=== PATIENT | male | born 1945 ===

== ENCOUNTER 2018-08-19 15:54 | Inpatient (IN) ==
[2018-08-19] MEDS ORDERED: GLUCAGON 1 MG VIAL IM PRN (18:59)
[2018-08-19] MEDS ORDERED: ONDANSETRON 4 MG/2 ML VIAL IV PRN (18:59)
[2018-08-19] MEDS ORDERED: MORPHINE 4 MG/1 ML VIAL IV PRN (18:59)
[2018-08-19] MEDS ORDERED: INSULIN REGULAR 100 UNIT/ML IV ONE (19:02)
[2018-08-19 19:42] LABS: Basophils % 0.3 % (0.0-0.8); Eosinophils # 0.1 10*3/uL (0.0-0.87); Eosinophils % 0.4 % (0.00-10.9); Hematocrit 33.3 VOL% (42.0-52.0); Hemoglobin 11.5 GM/DL (14.0-18.0); Immature Granulocytes % 2.3 %; Immature Granulocytes Absolute 0.27 #; Lymphocytes # 0.7 10*3/uL (1.4-4.0); Lymphocytes % 5.5 % (21.2-54.2); Mean Corpuscular HGB Conc 34.5 GM/DL (32-36); Mean Corpuscular Hemoglobin 31 PG (27-34); Mean Corpuscular Volume 90.7 FL (87-102); Mean Platelet Volume 10.2 FL (9.6-12.0); Monocytes # 1.5 10*3/uL (0.11-0.8); Monocytes % 12.5 % (1.7-12.7); Neutrophils # 9.3 10*3/uL (1.4-7.4); Platelet Count 134 T/CUMM (130-400); Red Blood Count 3.67 MC/CUMM (3.8-5.5); Red Cell Distribution Width 12.2 % (9.3-17.3); White Blood Count 11.7 T/CUMM (4-12)
[2018-08-19] MEDS: SODIUM CHLORIDE 0.9% 1,000 ML IV SCH (20:00)
[2018-08-19 20:06] LABS: Band Neutrophils 4 % (0-10); Eosinophils 1 % (0-10); Lymphocytes 4 % (20-55); Platelet Estimate Normal; Segmented Neutrophils 84 % (50-85)
[2018-08-19 20:07] LABS: Anisocytosis Slight; Polychromasia Slight
[2018-08-19 20:07] LABS: Alanine Aminotransferase 11 U/L (16-61); Albumin 1.7 G/DL (3.4-5.0); Alkaline Phosphatase 74 U/L (45-117); Aspartate Amino Transferase 16 U/L (0-37); Blood Urea Nitrogen 49 MG/DL (7-18); Calcium 7.9 MG/DL (8.5-10.1); Cholesterol 104 MG/DL (50-200); Glucose 364 MG/DL (74-106); HDL Cholesterol < 10 MG/DL (40-60); Osmolality,Calculated 274.8 MOS/KG (273-304); Potassium 3.1 MMOL/L (3.5-5.1); Sodium 123 MMOL/L (136-145); Total Protein 6.6 G/DL (6.4-8.3); Triglycerides 196 MG/DL (2-150); VLDL CHOLESTEROL 39.2 MG/DL
[2018-08-19 20:08] LABS: Hypochromasia Slight; Total Cells Counted 100
[2018-08-19] MEDS ORDERED: POTASSIUM CHLORIDE 20 MEQ TABLET PO ONE (20:09)
[2018-08-19] MEDS ORDERED: INSULIN GLARGINE 100 UNIT/ML SUBCUT SCH (21:00)
[2018-08-19] MEDS: ENOXAPARIN 40 MG/0.4 ML SYRINGE SUBCUT SCH (22:18)
[2018-08-19 22:31] LABS: Apearance,Urine CLOUDY (Clear); Bilirubin,Urine Negative (Negative); Blood, Urine Large mg/dL (Negative); Glucose,Urine (UA) >=500 mg/dL (Negative); Ketones,Urine 5 mg/dL (Negative); Nitrite,Urine Negative (Negative); Protein,Urine 100 MG/DL; RBC,Urine 4 /HPF (0-4); Squamous Epithelial Cell,Urine Occasional /HPF (0-10); Urine Color Amber (Yellow); Urine Specific Gravity 1.016 (1.001-1.035); WBC,Urine 490 /HPF (0-6)
[2018-08-20] MEDS: cefTRIAXone 1,000 MG in SYRINGE 1 EACH IV SCH (05:10)
[2018-08-20] MEDS: ACETAMINOPHEN 325 MG TABLET PO PRN (05:10)
[2018-08-20] MEDS: SODIUM CHLORIDE 0.9% 1,000 ML IV SCH ×3 (05:11→21:24)
[2018-08-20 05:32] LABS: Calcium 7.3 MG/DL (8.5-10.1); Osmolality,Calculated 273.5 MOS/KG (273-304); Potassium 3.3 MMOL/L (3.5-5.1)
[2018-08-20] MEDS: PANTOPRAZOLE 40 MG TABLET PO SCH (08:56)
[2018-08-20] MEDS: MULTIVITAMIN (BEROCCA) TABLET PO SCH (08:56)
[2018-08-20] MEDS: ASPIRIN 325 MG TABLET PO SCH (08:56)
[2018-08-20] MEDS: THIAMINE 200 MG/2 ML VIAL IV SCH (08:56)
[2018-08-20] MEDS ORDERED: POTASSIUM CHLORIDE 20 MEQ TABLET PO ONE ×2 (12:18→13:01)
[2018-08-20] MEDS: INSULIN LISPRO 100 UNIT/ML SUBCUT SCH ×3 (12:55→21:24)
[2018-08-20 17:23] LABS: Calcium 7.4 MG/DL (8.5-10.1); Osmolality,Calculated 277.9 MOS/KG (273-304); Potassium 3.6 MMOL/L (3.5-5.1)
[2018-08-20] MEDS: ENOXAPARIN 40 MG/0.4 ML SYRINGE SUBCUT SCH (21:24)
[2018-08-20] MEDS: INSULIN GLARGINE 100 UNIT/ML SUBCUT SCH (21:24)
[2018-08-21] MEDS: SODIUM CHLORIDE 0.9% 1,000 ML IV SCH ×4 (00:05→15:26)
[2018-08-21 05:24] LABS: Calcium 7.2 MG/DL (8.5-10.1); Osmolality,Calculated 273.4 MOS/KG (273-304); Potassium 4.2 MMOL/L (3.5-5.1)
[2018-08-21] MEDS: cefTRIAXone 1,000 MG in SYRINGE 1 EACH IV SCH (06:01)
[2018-08-21] MEDS: INSULIN LISPRO 100 UNIT/ML SUBCUT SCH ×4 (08:23→22:32)
[2018-08-21] MEDS ORDERED: SODIUM CHLORIDE 0.9% 100 ML IV ONE (08:52)
[2018-08-21] MEDS: ASPIRIN 325 MG TABLET PO SCH (08:59)
[2018-08-21] MEDS: PANTOPRAZOLE 40 MG TABLET PO SCH (08:59)
[2018-08-21] MEDS: MULTIVITAMIN (BEROCCA) TABLET PO SCH (08:59)
[2018-08-21] MEDS: THIAMINE 200 MG/2 ML VIAL IV SCH (09:00)
[2018-08-21] MEDS: chlordiazePOXIDE 25 MG CAPSULE PO SCH ×2 (18:44→22:32)
[2018-08-21] MEDS: ENOXAPARIN 40 MG/0.4 ML SYRINGE SUBCUT SCH (22:33)
[2018-08-21] MEDS: INSULIN GLARGINE 100 UNIT/ML SUBCUT SCH (22:33)
[2018-08-22 04:50] LABS: Basophils % 0.2 % (0.0-0.8); Eosinophils # 0.1 10*3/uL (0.0-0.87); Eosinophils % 0.6 % (0.00-10.9); Hematocrit 30.1 VOL% (42.0-52.0); Hemoglobin 10.2 GM/DL (14.0-18.0); Immature Granulocytes Absolute 0.49 #; Lymphocytes # 1.4 10*3/uL (1.4-4.0); Lymphocytes % 5.7 % (21.2-54.2); Mean Corpuscular HGB Conc 33.9 GM/DL (32-36); Mean Corpuscular Hemoglobin 32 PG (27-34); Mean Corpuscular Volume 93.5 FL (87-102); Mean Platelet Volume 9.7 FL (9.6-12.0); Monocytes # 2.3 10*3/uL (0.11-0.8); Monocytes % 9.4 % (1.7-12.7); Neutrophils # 19.9 10*3/uL (1.4-7.4); Neutrophils % 82.1 % (38.7-73.9); Platelet Count 232 T/CUMM (130-400); Red Blood Count 3.22 MC/CUMM (3.8-5.5); White Blood Count 24.3 T/CUMM (4-12)
[2018-08-22 05:22] LABS: Eosinophils 1 % (0-10); Lymphocytes 7 % (20-55); Platelet Estimate Adequate; Segmented Neutrophils 88 % (50-85); Total Cells Counted 100
[2018-08-22 05:26] LABS: Osmolality,Calculated 261.9 MOS/KG (273-304); Potassium 3.9 MMOL/L (3.5-5.1)
[2018-08-22] MEDS: cefTRIAXone 1,000 MG in SYRINGE 1 EACH IV SCH (05:58)
[2018-08-22] MEDS: SODIUM CHLORIDE 0.9% 1,000 ML IV SCH ×3 (05:59→18:30)
[2018-08-22] MEDS: INSULIN LISPRO 100 UNIT/ML SUBCUT SCH ×4 (08:06→21:16)
[2018-08-22] MEDS: chlordiazePOXIDE 25 MG CAPSULE PO SCH ×4 (09:08→21:29)
[2018-08-22] MEDS: PANTOPRAZOLE 40 MG TABLET PO SCH (09:09)
[2018-08-22] MEDS: MULTIVITAMIN (BEROCCA) TABLET PO SCH (09:09)
[2018-08-22] MEDS: ASPIRIN 325 MG TABLET PO SCH (09:09)
[2018-08-22] MEDS: THIAMINE 200 MG/2 ML VIAL IV SCH (09:10)
[2018-08-22 10:09] LABS: Basophils % 0.2 % (0.0-0.8); Eosinophils # 0.1 10*3/uL (0.0-0.87); Eosinophils % 0.7 % (0.00-10.9); Hemoglobin 9.5 GM/DL (14.0-18.0); Immature Granulocytes % 1.5 %; Immature Granulocytes Absolute 0.29 #; Lymphocytes # 0.7 10*3/uL (1.4-4.0); Lymphocytes % 3.7 % (21.2-54.2); Mean Corpuscular HGB Conc 33.9 GM/DL (32-36); Mean Corpuscular Hemoglobin 32 PG (27-34); Mean Corpuscular Volume 94.3 FL (87-102); Mean Platelet Volume 9.3 FL (9.6-12.0); Monocytes # 1.6 10*3/uL (0.11-0.8); Monocytes % 8.2 % (1.7-12.7); Neutrophils # 16.6 10*3/uL (1.4-7.4); Neutrophils % 85.7 % (38.7-73.9); Platelet Count 219 T/CUMM (130-400); Red Blood Count 2.97 MC/CUMM (3.8-5.5); Red Cell Distribution Width 13.3 % (9.3-17.3); White Blood Count 19.4 T/CUMM (4-12)
[2018-08-22 10:36] LABS: Lymphocytes 3 % (20-55); Segmented Neutrophils 93 % (50-85); Total Cells Counted 100
[2018-08-22 10:37] LABS: Hypochromasia 1+; Microcytosis 1+
[2018-08-22 10:38] LABS: Platelet Estimate Normal
[2018-08-22] MEDS: MEROPENEM 1,000 MG in SODIUM CHLORIDE 0.9% 100 ML IV SCH (13:18)
[2018-08-22] MEDS: VANCOMYCIN INJ 1,000 MG in SODIUM CHLORIDE 0.9% 250 ML IV SCH (14:42)
[2018-08-22] MEDS: INSULIN GLARGINE 100 UNIT/ML SUBCUT SCH (21:16)
[2018-08-22] MEDS: ACETAMINOPHEN 325 MG TABLET PO PRN (21:31)
[2018-08-22] MEDS: ENOXAPARIN 40 MG/0.4 ML SYRINGE SUBCUT SCH (21:31)
[2018-08-23] MEDS: MEROPENEM 1,000 MG in SODIUM CHLORIDE 0.9% 100 ML IV SCH ×2 (00:06→15:18)
[2018-08-23] MEDS: SODIUM CHLORIDE 0.9% 1,000 ML IV SCH ×5 (05:16→23:02)
[2018-08-23 07:23] LABS: Basophils % 0.2 % (0.0-0.8); Eosinophils # 0.3 10*3/uL (0.0-0.87); Eosinophils % 1.6 % (0.00-10.9); Hemoglobin 9.1 GM/DL (14.0-18.0); Immature Granulocytes % 1.5 %; Immature Granulocytes Absolute 0.25 #; Lymphocytes # 0.9 10*3/uL (1.4-4.0); Lymphocytes % 5.6 % (21.2-54.2); Mean Corpuscular HGB Conc 32.5 GM/DL (32-36); Mean Corpuscular Hemoglobin 32 PG (27-34); Mean Corpuscular Volume 96.9 FL (87-102); Mean Platelet Volume 9.1 FL (9.6-12.0); Monocytes # 1.7 10*3/uL (0.11-0.8); Monocytes % 10.5 % (1.7-12.7); Neutrophils # 13.3 10*3/uL (1.4-7.4); Neutrophils % 80.6 % (38.7-73.9); Platelet Count 226 T/CUMM (130-400); Red Blood Count 2.89 MC/CUMM (3.8-5.5); Red Cell Distribution Width 13.5 % (9.3-17.3); White Blood Count 16.5 T/CUMM (4-12)
[2018-08-23 07:45] LABS: Albumin 1.3 G/DL (3.4-5.0); Bilirubin,Total 0.8 MG/DL (0.2-1.0); Potassium 3.8 MMOL/L (3.5-5.1); Total Protein 5.1 G/DL (6.4-8.3)
[2018-08-23] MEDS: VANCOMYCIN INJ 1,000 MG in SODIUM CHLORIDE 0.9% 250 ML IV SCH (08:12)
[2018-08-23] MEDS ORDERED: cefTRIAXone 1,000 MG in SYRINGE 1 EACH IV ONE (08:17)
[2018-08-23] MEDS: MULTIVITAMIN (BEROCCA) TABLET PO SCH (08:53)
[2018-08-23] MEDS: ASPIRIN 325 MG TABLET PO SCH (08:53)
[2018-08-23] MEDS: chlordiazePOXIDE 25 MG CAPSULE PO SCH ×4 (08:53→21:37)
[2018-08-23] MEDS: PANTOPRAZOLE 40 MG TABLET PO SCH (08:53)
[2018-08-23 08:54] LABS: INR 1.2
[2018-08-23] MEDS: THIAMINE 200 MG/2 ML VIAL IV SCH (08:54)
[2018-08-23] MEDS ORDERED: PHENYLEPHRINE DRIP 20 MG/250 ML PREMIX IV ONE (09:26)
[2018-08-23] MEDS ORDERED: HEPARIN/NACL 0.9% 2 UNITS/ML 500 ML IV ONE (09:26)
[2018-08-23] MEDS ORDERED: CALCIUM CHLORIDE 1,000 MG/10 ML VIAL IV ONE (09:26)
[2018-08-23] MEDS ORDERED: SODIUM BICARBONATE 50 MEQ/50 ML SYRINGE IV ONE ×2 (09:26→11:42)
[2018-08-23] MEDS ORDERED: ROPIVACAINE 0.5% 30 ML VIAL ONE ×3 (09:28→12:56)
[2018-08-23 09:30] LABS: Albumin 1.2 G/DL (3.4-5.0); Bilirubin,Direct 0.56 MG/DL (0.0-0.20); Bilirubin,Indirect 0.1 MG/DL (0.0-1.0); Bilirubin,Total 0.7 MG/DL (0.2-1.0); Total Protein 5.1 G/DL (6.4-8.3)
[2018-08-23] MEDS ORDERED: MICROFIBRILLAR COLLAGEN POWDER 1 GM CAN TOP ONE (09:35)
[2018-08-23] MEDS ORDERED: SODIUM CHLORIDE 0.9% 1,000 ML IV PRN (09:53)
[2018-08-23] MEDS: INSULIN LISPRO 100 UNIT/ML SUBCUT SCH ×4 (10:08→21:36)
[2018-08-23 11:21] LABS: ABG Base Excess -10.5 MMOL/L (-2.5-2.5); ABG HCO3 16.1 MMOL/L (20-26); ABG Oxygen Saturation 99.9 % (95-100); ABG PCO2 28.4 MM HG (35-48); ABG PH 7.318 (7.35-7.45); ABG TCO2 13.5 MMOL/L (23-27); Glucose Heart Surgery 94 MG/DL (74-106); Hematocrit Heart Surgery 28.8 PERCENT (42-52); Hemoglobin Heart Surgery 9.3 G/DL (14.0-18.0); Ionized Calcium Arterial 1.11 MMOL/L (1.21-1.46); PCO2 Patient Temp Arterial 25.8 MMHG; PH Patient Temp Arterial 7.346; Patient Temperature 35 CELCIUS; Potassium Heart/CVR 3.8 MMOL/L (3.5-5.1); Sodium Heart/CVR 130 MMOL/L (135-145)
[2018-08-23] MEDS ORDERED: ALBUMIN 5% 12.5 GM/250 ML VIAL IV ONE (11:42)
[2018-08-23] MEDS ORDERED: DEXTROSE 50% 25 GM/50 ML VIAL IV ONE (11:42)
[2018-08-23 12:17] LABS: ABG Base Excess -4.7 MMOL/L (-2.5-2.5); ABG HCO3 20.5 MMOL/L (20-26); ABG Oxygen Saturation 99.9 % (95-100); ABG PH 7.351 (7.35-7.45); ABG TCO2 19.2 MMOL/L (23-27); Glucose Heart Surgery 94 MG/DL (74-106); Hemoglobin Heart Surgery 7.7 G/DL (14.0-18.0); Potassium Heart/CVR 3.3 MMOL/L (3.5-5.1)
[2018-08-23] MEDS ORDERED: ETOMIDATE 40 MG/20 ML VIAL IV ONE (12:56)
[2018-08-23] MEDS ORDERED: MIDAZOLAM 10 MG/2 ML VIAL ONE (12:56)
[2018-08-23] MEDS ORDERED: ROCURONIUM 100 MG/10 ML VIAL IV ONE (12:57)
[2018-08-23 13:50] LABS: Amorphous Crystals,Urine Few /HPF (Few); Apearance,Urine CLOUDY (Clear); Bilirubin,Urine Negative (Negative); Blood, Urine Moderate mg/dL (Negative); Glucose,Urine (UA) Negative (Negative); Ketones,Urine Negative (Negative); Nitrite,Urine Negative (Negative); Protein,Urine Negative; Urine Color Yellow (Yellow); WBC,Urine 4 /HPF (0-6)
[2018-08-23 14:04] LABS: Basophils % 0.2 % (0.0-0.8); Eosinophils # 0.1 10*3/uL (0.0-0.87); Eosinophils % 1.2 % (0.00-10.9); Hemoglobin 10.3 GM/DL (14.0-18.0); Immature Granulocytes % 1.2 %; Immature Granulocytes Absolute 0.13 #; Lymphocytes # 0.5 10*3/uL (1.4-4.0); Lymphocytes % 4.4 % (21.2-54.2); Mean Corpuscular HGB Conc 33.2 GM/DL (32-36); Mean Corpuscular Hemoglobin 31 PG (27-34); Mean Corpuscular Volume 93.9 FL (87-102); Mean Platelet Volume 10.2 FL (9.6-12.0); Monocytes # 0.3 10*3/uL (0.11-0.8); Monocytes % 2.3 % (1.7-12.7); Neutrophils # 10.1 10*3/uL (1.4-7.4); Neutrophils % 90.7 % (38.7-73.9); Platelet Count 178 T/CUMM (130-400); Red Cell Distribution Width 13.5 % (9.3-17.3); White Blood Count 11.1 T/CUMM (4-12)
[2018-08-23 14:06] LABS: ABG Base Excess -6.9 MMOL/L (-2.5-2.5); ABG HCO3 18.8 MMOL/L (20-26); ABG Oxygen Saturation 99.5 % (95-100); ABG PCO2 36.5 MM HG (35-48); ABG PH 7.316 (7.35-7.45)
[2018-08-23 14:29] LABS: Band Neutrophils 2 % (0-10); Burr Cells Few; Eosinophils 2 % (0-10); Hypochromasia Slight; Lymphocytes 2 % (20-55); Platelet Estimate Adequate; Segmented Neutrophils 92 % (50-85); Total Cells Counted 100
[2018-08-23 14:32] LABS: Calcium 7.1 MG/DL (8.5-10.1); Osmolality,Calculated 277.7 MOS/KG (273-304); Potassium 4.3 MMOL/L (3.5-5.1)
[2018-08-23] MEDS: PROPOFOL 1,000 MG/100 ML BOTTLE IV SCH (19:08)
[2018-08-23] MEDS: HYDROmorphone 2 MG/1 ML VIAL IV PRN ×2 (19:30→21:30)
[2018-08-23] MEDS: ENOXAPARIN 40 MG/0.4 ML SYRINGE SUBCUT SCH (21:37)
[2018-08-24] MEDS: INSULIN LISPRO 100 UNIT/ML SUBCUT SCH ×6 (00:12→22:33)
[2018-08-24] MEDS: MEROPENEM 1,000 MG in SODIUM CHLORIDE 0.9% 100 ML IV SCH ×2 (00:23→12:35)
[2018-08-24] MEDS ORDERED: MAGNESIUM SULF RIDER 4 GM in PREMIX 1 EACH IV PRN (00:58)
[2018-08-24] MEDS ORDERED: MAGNESIUM SULF RIDER 2 GM in PREMIX 1 EACH IV PRN (00:58)
[2018-08-24] MEDS: VANCOMYCIN INJ 1,000 MG in SODIUM CHLORIDE 0.9% 250 ML IV SCH ×2 (03:45→21:22)
[2018-08-24] MEDS: HYDROmorphone 2 MG/1 ML VIAL IV PRN ×4 (03:46→21:00)
[2018-08-24] MEDS: SODIUM CHLORIDE 0.9% 1,000 ML IV SCH ×3 (03:46→16:03)
[2018-08-24 04:32] LABS: ABG Base Excess -5.5 MMOL/L (-2.5-2.5); ABG HCO3 19.9 MMOL/L (20-26); ABG Oxygen Saturation 99.7 % (95-100); ABG PH 7.416 (7.35-7.45); ABG TCO2 16.3 MMOL/L (23-27)
[2018-08-24 04:41] LABS: Basophils % 0.3 % (0.0-0.8); Eosinophils # 0.2 10*3/uL (0.0-0.87); Eosinophils % 1.8 % (0.00-10.9); Hemoglobin 9.7 GM/DL (14.0-18.0); Immature Granulocytes % 1.1 %; Immature Granulocytes Absolute 0.13 #; Lymphocytes # 0.7 10*3/uL (1.4-4.0); Lymphocytes % 5.7 % (21.2-54.2); Mean Corpuscular HGB Conc 33.4 GM/DL (32-36); Mean Corpuscular Hemoglobin 31 PG (27-34); Mean Corpuscular Volume 93.5 FL (87-102); Mean Platelet Volume 9.3 FL (9.6-12.0); Monocytes # 1.5 10*3/uL (0.11-0.8); Monocytes % 12.3 % (1.7-12.7); Neutrophils # 9.3 10*3/uL (1.4-7.4); Neutrophils % 78.8 % (38.7-73.9); Platelet Count 224 T/CUMM (130-400); Red Cell Distribution Width 14.6 % (9.3-17.3); White Blood Count 11.8 T/CUMM (4-12)
[2018-08-24 05:14] LABS: Alanine Aminotransferase < 9 U/L (16-61); Albumin 1.4 G/DL (3.4-5.0); Alkaline Phosphatase 87 U/L (45-117); Aspartate Amino Transferase 22 U/L (0-37); Blood Urea Nitrogen 18 MG/DL (7-18); Calcium 6.9 MG/DL (8.5-10.1); Glucose 68 MG/DL (74-106); Osmolality,Calculated 280.3 MOS/KG (273-304); Potassium 3.8 MMOL/L (3.5-5.1); Sodium 141 MMOL/L (136-145); Total Protein 4.8 G/DL (6.4-8.3)
[2018-08-24] MEDS: LORazepam 2 MG/1 ML VIAL IV PRN ×2 (06:09→21:22)
[2018-08-24] MEDS: DEXTROSE 50% 25 GM/50 ML SYRINGE IV PRN (06:10)
[2018-08-24] MEDS: THIAMINE 200 MG/2 ML VIAL IV SCH (08:13)
[2018-08-24] MEDS: PANTOPRAZOLE 40 MG TABLET PO SCH (08:13)
[2018-08-24] MEDS: ASPIRIN 325 MG TABLET PO SCH (08:13)
[2018-08-24] MEDS: MULTIVITAMIN (BEROCCA) TABLET PO SCH (08:13)
[2018-08-24] MEDS: chlordiazePOXIDE 25 MG CAPSULE PO SCH ×4 (08:17→21:22)
[2018-08-24] MEDS ORDERED: MIDAZOLAM 10 MG/2 ML VIAL ONE (11:38)
[2018-08-24] MEDS: PROPOFOL 1,000 MG/100 ML BOTTLE IV SCH (13:04)
[2018-08-24] MEDS: ENOXAPARIN 40 MG/0.4 ML SYRINGE SUBCUT SCH (21:22)
[2018-08-25] MEDS: INSULIN LISPRO 100 UNIT/ML SUBCUT SCH ×6 (00:37→20:45)
[2018-08-25] MEDS: MEROPENEM 1,000 MG in SODIUM CHLORIDE 0.9% 100 ML IV SCH ×2 (00:41→13:14)
[2018-08-25] MEDS: SODIUM CHLORIDE 0.9% 1,000 ML IV SCH ×3 (01:14→17:34)
[2018-08-25] MEDS: HYDROmorphone 2 MG/1 ML VIAL IV PRN ×5 (02:10→23:53)
[2018-08-25 03:27] LABS: ABG Base Excess -6.9 MMOL/L (-2.5-2.5); ABG HCO3 18.8 MMOL/L (20-26); ABG Oxygen Saturation 98.2 % (95-100); ABG PCO2 35.3 MM HG (35-48); ABG PH 7.326 (7.35-7.45); ABG TCO2 16.9 MMOL/L (23-27)
[2018-08-25 03:33] LABS: Basophils % 0.3 % (0.0-0.8); Eosinophils # 0.5 10*3/uL (0.0-0.87); Eosinophils % 3.6 % (0.00-10.9); Hematocrit 30.5 VOL% (42.0-52.0); Hemoglobin 9.9 GM/DL (14.0-18.0); Immature Granulocytes % 1.4 %; Immature Granulocytes Absolute 0.17 #; Lymphocytes # 0.7 10*3/uL (1.4-4.0); Lymphocytes % 5.3 % (21.2-54.2); Mean Corpuscular HGB Conc 32.5 GM/DL (32-36); Mean Corpuscular Hemoglobin 31 PG (27-34); Mean Corpuscular Volume 95.3 FL (87-102); Monocytes # 1.7 10*3/uL (0.11-0.8); Monocytes % 13.5 % (1.7-12.7); Neutrophils # 9.6 10*3/uL (1.4-7.4); Neutrophils % 75.9 % (38.7-73.9); Platelet Count 241 T/CUMM (130-400); Red Cell Distribution Width 14.8 % (9.3-17.3); White Blood Count 12.6 T/CUMM (4-12)
[2018-08-25 03:56] LABS: Calcium 6.9 MG/DL (8.5-10.1); Osmolality,Calculated 282.1 MOS/KG (273-304); Potassium 4.2 MMOL/L (3.5-5.1)
[2018-08-25] MEDS: chlordiazePOXIDE 25 MG CAPSULE PO SCH ×4 (08:19→21:15)
[2018-08-25] MEDS: MULTIVITAMIN (BEROCCA) TABLET PO SCH (08:55)
[2018-08-25] MEDS: ASPIRIN 325 MG TABLET PO SCH (08:55)
[2018-08-25] MEDS: THIAMINE 200 MG/2 ML VIAL IV SCH (08:55)
[2018-08-25] MEDS: LANSOPRAZOLE ODT 30 MG TABLET PER TUBE SCH (08:55)
[2018-08-25] MEDS: PROPOFOL 1,000 MG/100 ML BOTTLE IV SCH (13:15)
[2018-08-25] MEDS: ALBUTEROL/IPRATROPIUM 3 ML NEB RESP TX SCH ×3 (16:00→23:11)
[2018-08-25] MEDS: ENOXAPARIN 40 MG/0.4 ML SYRINGE SUBCUT SCH (21:15)
[2018-08-26] MEDS: INSULIN LISPRO 100 UNIT/ML SUBCUT SCH ×6 (01:23→22:12)
[2018-08-26] MEDS: MEROPENEM 1,000 MG in SODIUM CHLORIDE 0.9% 100 ML IV SCH ×2 (03:32→14:05)
[2018-08-26] MEDS: SODIUM CHLORIDE 0.9% 1,000 ML IV SCH ×5 (03:32→22:23)
[2018-08-26] MEDS: ALBUTEROL/IPRATROPIUM 3 ML NEB RESP TX SCH ×5 (04:02→21:22)
[2018-08-26] MEDS: chlordiazePOXIDE 25 MG CAPSULE PO SCH ×4 (08:02→22:12)
[2018-08-26] MEDS: MULTIVITAMIN (BEROCCA) TABLET PO SCH (08:33)
[2018-08-26] MEDS: ASPIRIN 325 MG TABLET PO SCH (08:33)
[2018-08-26] MEDS: LANSOPRAZOLE ODT 30 MG TABLET PER TUBE SCH (08:33)
[2018-08-26] MEDS: ENOXAPARIN 40 MG/0.4 ML SYRINGE SUBCUT SCH (22:12)
[2018-08-27] MEDS: ALBUTEROL/IPRATROPIUM 3 ML NEB RESP TX SCH ×6 (00:04→19:06)
[2018-08-27] MEDS: MEROPENEM 1,000 MG in SODIUM CHLORIDE 0.9% 100 ML IV SCH ×2 (01:56→13:25)
[2018-08-27] MEDS: SODIUM CHLORIDE 0.9% 1,000 ML IV SCH ×2 (07:43→10:48)
[2018-08-27] MEDS: MULTIVITAMIN (BEROCCA) TABLET PO SCH (08:16)
[2018-08-27] MEDS: ASPIRIN 325 MG TABLET PO SCH (08:16)
[2018-08-27] MEDS: chlordiazePOXIDE 25 MG CAPSULE PO SCH (08:16)
[2018-08-27] MEDS: INSULIN LISPRO 100 UNIT/ML SUBCUT SCH ×4 (08:16→21:56)
[2018-08-27] MEDS: LANSOPRAZOLE ODT 30 MG TABLET PER TUBE SCH (08:16)
[2018-08-27] MEDS: ENOXAPARIN 40 MG/0.4 ML SYRINGE SUBCUT SCH (21:55)
[2018-08-27] MEDS: chlordiazePOXIDE 10 MG CAPSULE PO SCH (21:55)
[2018-08-28] MEDS: ALBUTEROL/IPRATROPIUM 3 ML NEB RESP TX SCH ×7 (00:04→23:16)
[2018-08-28] MEDS: MEROPENEM 1,000 MG in SODIUM CHLORIDE 0.9% 100 ML IV SCH ×2 (00:23→13:56)
[2018-08-28] MEDS: HYDROmorphone 2 MG/1 ML VIAL IV PRN (04:09)
[2018-08-28 05:37] LABS: Basophils % 0.6 % (0.0-0.8); Eosinophils # 0.3 10*3/uL (0.0-0.87); Eosinophils % 6.3 % (0.00-10.9); Immature Granulocytes % 0.4 %; Immature Granulocytes Absolute 0.02 #; Lymphocytes # 0.8 10*3/uL (1.4-4.0); Lymphocytes % 16.4 % (21.2-54.2); Mean Corpuscular HGB Conc 32.1 GM/DL (32-36); Mean Corpuscular Hemoglobin 31 PG (27-34); Mean Corpuscular Volume 96.6 FL (87-102); Monocytes # 0.6 10*3/uL (0.11-0.8); Monocytes % 12.1 % (1.7-12.7); Neutrophils # 3.3 10*3/uL (1.4-7.4); Neutrophils % 64.2 % (38.7-73.9); Platelet Count 252 T/CUMM (130-400); Red Cell Distribution Width 14.4 % (9.3-17.3); White Blood Count 5.1 T/CUMM (4-12)
[2018-08-28 05:50] LABS: Osmolality,Calculated 279.1 MOS/KG (273-304); Potassium 4.1 MMOL/L (3.5-5.1)
[2018-08-28] MEDS: INSULIN LISPRO 100 UNIT/ML SUBCUT SCH ×4 (06:42→20:25)
[2018-08-28] MEDS: ASPIRIN 325 MG TABLET PO SCH (08:18)
[2018-08-28] MEDS: LANSOPRAZOLE ODT 30 MG TABLET PER TUBE SCH (08:18)
[2018-08-28] MEDS: MULTIVITAMIN (BEROCCA) TABLET PO SCH (08:18)
[2018-08-28] MEDS: chlordiazePOXIDE 10 MG CAPSULE PO SCH ×2 (08:19→20:29)
[2018-08-28] MEDS: ENOXAPARIN 40 MG/0.4 ML SYRINGE SUBCUT SCH (20:29)
[2018-08-29] MEDS: MEROPENEM 1,000 MG in SODIUM CHLORIDE 0.9% 100 ML IV SCH ×2 (01:43→12:35)
[2018-08-29] MEDS: HYDROmorphone 2 MG/1 ML VIAL IV PRN ×2 (02:12→23:49)
[2018-08-29] MEDS: ALBUTEROL/IPRATROPIUM 3 ML NEB RESP TX SCH ×6 (02:15→23:11)
[2018-08-29] MEDS: INSULIN LISPRO 100 UNIT/ML SUBCUT SCH ×4 (07:53→20:55)
[2018-08-29] MEDS: chlordiazePOXIDE 10 MG CAPSULE PO SCH ×2 (08:22→20:56)
[2018-08-29] MEDS: MULTIVITAMIN (BEROCCA) TABLET PO SCH (08:23)
[2018-08-29] MEDS: ASPIRIN 325 MG TABLET PO SCH (08:23)
[2018-08-29] MEDS: LANSOPRAZOLE ODT 30 MG TABLET PER TUBE SCH (08:23)
[2018-08-29] MEDS ORDERED: MAGNESIUM OXIDE 400 MG TABLET PO ONE (14:58)
[2018-08-29] MEDS: POLYETHYLENE GLYCOL POWDER 17 GM PACK PO SCH (15:43)
[2018-08-29] MEDS: TAMSULOSIN 0.4 MG CAPSULE PO SCH (20:54)
[2018-08-29] MEDS: ENOXAPARIN 40 MG/0.4 ML SYRINGE SUBCUT SCH (20:55)
[2018-08-30] MEDS: ALBUTEROL/IPRATROPIUM 3 ML NEB RESP TX SCH ×6 (02:31→23:51)
[2018-08-30 04:38] LABS: Calcium 7.5 MG/DL (8.5-10.1); Osmolality,Calculated 281.1 MOS/KG (273-304); Potassium 4.1 MMOL/L (3.5-5.1)
[2018-08-30] MEDS: INSULIN LISPRO 100 UNIT/ML SUBCUT SCH ×4 (07:49→21:31)
[2018-08-30] MEDS: chlordiazePOXIDE 10 MG CAPSULE PO SCH ×2 (08:41→21:30)
[2018-08-30] MEDS: LANSOPRAZOLE ODT 30 MG TABLET PER TUBE SCH (08:41)
[2018-08-30] MEDS: ASPIRIN 325 MG TABLET PO SCH (08:41)
[2018-08-30] MEDS: POLYETHYLENE GLYCOL POWDER 17 GM PACK PO SCH (08:41)
[2018-08-30] MEDS: MULTIVITAMIN (BEROCCA) TABLET PO SCH (08:41)
[2018-08-30] MEDS ORDERED: TUBERCULIN SKIN TEST 0.1 ML SYRINGE INTRADERM ONE (12:05)
[2018-08-30] MEDS: TAMSULOSIN 0.4 MG CAPSULE PO SCH (21:30)
[2018-08-30] MEDS: ENOXAPARIN 40 MG/0.4 ML SYRINGE SUBCUT SCH (21:31)
[2018-08-31] MEDS: ALBUTEROL/IPRATROPIUM 3 ML NEB RESP TX SCH ×6 (04:09→23:20)
[2018-08-31] MEDS: INSULIN LISPRO 100 UNIT/ML SUBCUT SCH ×4 (08:07→20:34)
[2018-08-31] MEDS: chlordiazePOXIDE 10 MG CAPSULE PO SCH ×2 (09:42→20:34)
[2018-08-31] MEDS: ASPIRIN EC 81 MG TABLET PO SCH (09:42)
[2018-08-31] MEDS: POLYETHYLENE GLYCOL POWDER 17 GM PACK PO SCH (09:42)
[2018-08-31] MEDS: MULTIVITAMIN (BEROCCA) TABLET PO SCH (09:42)
[2018-08-31] MEDS: LANSOPRAZOLE ODT 30 MG TABLET PER TUBE SCH (09:43)
[2018-08-31] MEDS ORDERED: INFLUENZA VIRUS VACCINE 0.5 ML SYRINGE IM ONE (13:15)
[2018-08-31] MEDS: LEVOFLOXACIN 500 MG TABLET PO SCH (14:11)
[2018-08-31] MEDS ORDERED: DEXTROSE 50% 25 GM/50 ML VIAL IV ONE (19:34)
[2018-08-31] MEDS: DEXTROSE 50% 25 GM/50 ML SYRINGE IV PRN (19:41)
[2018-08-31] MEDS: ENOXAPARIN 40 MG/0.4 ML SYRINGE SUBCUT SCH (20:34)
[2018-08-31] MEDS: TAMSULOSIN 0.4 MG CAPSULE PO SCH (20:34)
[2018-09-01] MEDS: ALBUTEROL/IPRATROPIUM 3 ML NEB RESP TX SCH ×5 (03:02→19:47)
[2018-09-01 05:27] LABS: % Iron Saturation 29.4 % (18-50)
[2018-09-01] MEDS: INSULIN LISPRO 100 UNIT/ML SUBCUT SCH ×4 (08:34→20:33)
[2018-09-01] MEDS: LANSOPRAZOLE ODT 30 MG TABLET PER TUBE SCH (09:49)
[2018-09-01] MEDS: MULTIVITAMIN (BEROCCA) TABLET PO SCH (09:49)
[2018-09-01] MEDS: ASPIRIN EC 81 MG TABLET PO SCH (09:49)
[2018-09-01] MEDS: POLYETHYLENE GLYCOL POWDER 17 GM PACK PO SCH (09:49)
[2018-09-01] MEDS: chlordiazePOXIDE 10 MG CAPSULE PO SCH ×2 (09:49→21:23)
[2018-09-01] MEDS: LEVOFLOXACIN 500 MG TABLET PO SCH (14:33)
[2018-09-01] MEDS: ENOXAPARIN 40 MG/0.4 ML SYRINGE SUBCUT SCH (21:23)
[2018-09-01] MEDS: TAMSULOSIN 0.4 MG CAPSULE PO SCH (21:23)
[2018-09-02] MEDS: ALBUTEROL/IPRATROPIUM 3 ML NEB RESP TX SCH ×6 (00:13→19:30)
[2018-09-02 05:31] LABS: Calcium 7.4 MG/DL (8.5-10.1); Osmolality,Calculated 278.3 MOS/KG (273-304); Potassium 3.4 MMOL/L (3.5-5.1)
[2018-09-02] MEDS: INSULIN LISPRO 100 UNIT/ML SUBCUT SCH ×4 (08:41→21:31)
[2018-09-02] MEDS: LANSOPRAZOLE ODT 30 MG TABLET PER TUBE SCH (09:46)
[2018-09-02] MEDS: MULTIVITAMIN (BEROCCA) TABLET PO SCH (09:46)
[2018-09-02] MEDS: ASPIRIN EC 81 MG TABLET PO SCH (09:46)
[2018-09-02] MEDS: chlordiazePOXIDE 10 MG CAPSULE PO SCH ×2 (09:46→21:31)
[2018-09-02] MEDS: POLYETHYLENE GLYCOL POWDER 17 GM PACK PO SCH (09:46)
[2018-09-02] MEDS ORDERED: POTASSIUM CHLORIDE 20 MEQ TABLET PO ONE (12:22)
[2018-09-02] MEDS: LEVOFLOXACIN 500 MG TABLET PO SCH (14:39)
[2018-09-02] MEDS: ACETAMINOPHEN 325 MG TABLET PO PRN (17:55)
[2018-09-02] MEDS: TAMSULOSIN 0.4 MG CAPSULE PO SCH (21:31)
[2018-09-02] MEDS: ENOXAPARIN 40 MG/0.4 ML SYRINGE SUBCUT SCH (21:31)
[2018-09-03] MEDS: ALBUTEROL/IPRATROPIUM 3 ML NEB RESP TX SCH ×5 (00:31→14:30)
[2018-09-03 05:42] LABS: Calcium 7.7 MG/DL (8.5-10.1); Potassium 3.7 MMOL/L (3.5-5.1)
[2018-09-03] MEDS: INSULIN LISPRO 100 UNIT/ML SUBCUT SCH ×2 (08:19→13:23)
[2018-09-03] MEDS: ASPIRIN EC 81 MG TABLET PO SCH (08:46)
[2018-09-03] MEDS: MULTIVITAMIN (BEROCCA) TABLET PO SCH (08:46)
[2018-09-03] MEDS: LANSOPRAZOLE ODT 30 MG TABLET PER TUBE SCH (08:46)
[2018-09-03] MEDS: POLYETHYLENE GLYCOL POWDER 17 GM PACK PO SCH (08:46)
[2018-09-03] MEDS: chlordiazePOXIDE 10 MG CAPSULE PO SCH (08:46)
[2018-09-03 12:56] VITALS: BP 153/74
== END 2018-09-03 14:30 | DRG 659 ==
LOC: N.TELEN → SUATTDRO 18:05 → N.ICU 08-23 12:52 → N.5E 08-31 13:54
PROVIDERS: ADMIT Internal Medicine; ATTEND Internal Medicine